=== PATIENT | male | born 1990 | race Caucasian/White ===

== ENCOUNTER 2022-08-22 18:02 | Emergency (ER) | payer BC, SELFPAY ==
[2022-08-22 18:11] VITALS: BP 131/83; PULSE 86; RESP 16; TEMP 36.4; O2SAT 100
--- NOTE | 2022-08-22 18:29 | ED.ABDPAIN ---
HPI - Abdominal Pain General Chief Complaint: Abdominal Pain Stated Complaint: STOMACH PAIN Time Seen by Provider: 08/22/22 18:17 Source: patient Mode of arrival: ambulatory Limitations: no limitations History of Present Illness HPI narrative: Patient is a 31-year-old male presenting with right upper quadrant abdominal pain since Saturday. States there is a constant dull pain but has sharp shooting pain intermittently. Denies any association with eating making pain worse or better. States he feels like he has a big gas bubble in his abdomen, and feels bloated. Denies any nausea or vomiting but states he feels like if he could throw up it would make him feel better. Reports 1 episode of diarrhea but states that is normal for him. Related Data Allergies Allergy/AdvReac Type Severity Reaction Status Date / Time montelukast Allergy Unknown rash Verified 08/22/22 18:26 MONTELUKAST SODIUM Allergy Rash Uncoded 08/22/22 18:26 Review of Systems Review of Systems: All systems reviewed & are unremarkable except as noted in HPI and below Constitutional: Constitutional: Denies body ache(s), Denies fever(s), Denies headache(s), Denies malaise and Denies weakness Eyes: Eyes: Denies loss of vision ENT: Denies otalgia, Denies headache(s), Denies nasal discharge, Denies sinus pain and Denies sore throat Cardiovascular: Cardiovascular: Denies chest pain, Denies irregular heart rhythm and Denies dyspnea Respiratory: Respiratory: Denies dyspnea Gastrointestinal: Gastrointestinal: Reports abdominal pain, Denies melena, Denies hematochezia, Reports diarrhea, Denies nausea and Denies vomiting Musculoskeletal: Musculoskeletal: Denies back pain, Denies myalgias and Denies arthralgias Integumentary/Breasts: Skin/Breast: Denies pruritus and Denies rash Neurologic: Denies headache(s), Denies loss of vision and Denies weakness Psychiatric: Psychiatric: Reports no additional psychiatric complaints PMFSH Social History Social History Smoking status: Never smoker Alcohol intake: never Comments At time of signature, agree with nursing past medical, surgical, social and family history. There is no relevant family history pertinent to the presenting complaint. Exam Const: General: cooperative, healthy appearing, comfortable, no acute distress and well nourished Nutritional Appearance: well nourished Orientation/consciousness: patient oriented x3 Limitations: no limitations HENMT: Head: normal to inspection, normocephalic and atraumatic Ears: external ears normal Face/Nose/Sinus: Normal external nose present, normal facial exam and face symmetric Face and sinus: normal facial exam and face symmetric Mouth: Yes lip normal Eyes: General: appearance normal, both eyes and all related structures Alignment and Position: alignment normal and position normal Pupils: Equal, round and reactive pupils present EOM: EOMs intact bilaterally Neck: Neck: normal visual inspection and full ROM Chest: Chest palpation & inspection: normal inspection of the chest Resp: Effort & Inspection: normal respiratory effort and able to speak in complete sentences Auscultation: clear to auscultation bilaterally Cardio: Rate: regular rate Rhythm: regular rhythm Heart sounds: S1 normal heart sound present and S2 normal heart sound present GI: Inspection: distended and No Kehr's sign positive GI Palp: Yes abdominal tenderness (RUQ, No periumbilical tenderness.), Yes Soft to palpation, No Guarding due to palpation present (GI), No Rigid due to palpation and No Rebound tenderness present Auscultation: normal bowel sounds Other: Abdomen distended Skin: General skin exam: normal color and no rashes or lesions noted Neuro: General: patient oriented x3 and moves all extremities Cranial nerves: Yes Equal, round and reactive pupils present Speech: normal speech Gait exam (Neuro): Normal gait present Extrem: General: normal to inspection, full ROM and no edema
[2022-08-22] MEDS: MAG HYDROX/AL HYDROX/SIMETH 30 ML UDC 15 ML PO (18:36)
[2022-08-22] MEDS: LIDOCAINE HCL 2% VISC SOLN 15 ML UDC PO (18:36)
== END 2022-08-22 19:10 | disposition home or self-care (01) ==
PROVIDERS: Emergency Provider Nurse Practitioner Family
DX: R10.13 Epigastric pain (principal)
CPT/HCPCS: 99213; A9270; G0463

== ENCOUNTER 2024-03-08 13:51 | Emergency (ER) | payer OTHER, SELFPAY ==
--- NOTE | ~2024-03-08 | XR_ITS ---
XR ankle LT min 3V DATE: 03/08/2024 14:08 INDICATION: Rolled left ankle 8 days ago. Lateral pain. TECHNIQUE: 4 views COMPARISON: None FINDINGS: Moderate lateral ankle soft tissue swelling. No fracture or dislocation of the ankle or disruption of the ankle mortise. No periosteal reaction or bone destruction. IMPRESSION: Lateral soft tissue swelling; no fracture or dislocation Reviewed, dictated and finalized at location A.
--- NOTE | 2024-03-08 13:56 | ED.LOWEXIN ---
HPI - Extremity Injury (Lower) General Chief Complaint: Extremity Injury, Lower Stated Complaint: L ANKLE INJURY Time Seen by Provider: 03/08/24 14:26 Source: patient and RN notes reviewed Mode of arrival: ambulatory Limitations: no limitations History of Present Illness HPI Narrative: 33-year-old male presents with concern for right ankle pain. Reports little over week ago he rolled the ankle causing pain, swelling. He reports he has been using a wrap, using ice and elevation in he continues to have pain, swelling and bruising. complaint: ankle injury Related Data Allergies Allergy/AdvReac Type Severity Reaction Status Date / Time montelukast Allergy Unknown rash Verified 03/08/24 14:02 MONTELUKAST SODIUM Allergy Rash Uncoded 03/08/24 14:02 Review of Systems Review of Systems: CONSTITUTIONAL: Denies malaise, chills, sweats, or fever. SKIN: Denies rash or itching, open skin, laceration, abrasion, redness, warmth MUSCULOSKELETAL: Reports left ankle pain, swelling, bruising NEUROLOGIC: Denies numbness, weakness All systems reviewed & are unremarkable except as noted in HPI and below PMFSH Social History Social History Smoking status: Never smoker Alcohol intake: never Comments At time of signature, agree with nursing past medical, surgical, social and family history. There is no relevant family history pertinent to the presenting complaint Exam Narrative: GENERAL: Well-appearing, well-nourished, and in no acute distress. HEAD: Normocephalic, atraumatic. EYES: PERRLA, conjunctivae clear NECK: Supple. CHEST: Speaks in full sentences. No respiratory distress. HEART: Regular rate and rhythm. Normal and equal peripheral pulses. EXTREMITIES: Left ankle, foot, digits have grossly normal strength and sensation, grossly normal range of motion. Mild lateral edema, dependent ecchymosis. Normal sensation with sensitivity to light touch and pain. Lateral ankle tenderness. No open wounds, no skin tenting, no devitalized tissue or atrophy, no trophic changes, no obvious deformity, alignment normal, nearby joints and structures intact. Distal pulses palpable and equal bilaterally, skin warm, dry, pink. Capillary refill less than 3 seconds. SKIN: Warm, dry, no rash. NEURO: Alert and oriented x3. PSYCH: Normal mood and affect Course Course Emergency Course: Patient is aware of diagnosis, understands and agrees to treatment plan. Anticipatory guidance given. Patient agrees to follow-up as directed and is aware of reasons to seek care at the emergency department. Portions of this record may have been created with voice recognition software Level of Care: Express Care Visit Vital Signs Vital signs: Reviewed. MDM - Extremity Injury (Lower) MDM Narrative Medical decision making narrative: Patients injury and pain is consistent with musculoskeletal etiology. No signs of neurological or vascular compromise on exam. Compartments and tissues are soft without signs of compartment syndrome. Pain is felt appropriate for further evaluation on an outpatient basis. Critical Care Time Critical Care Time Critical Care Time: No Discharge Plan Discharge Clinical Impression: Ankle sprain and strain Patient Disposition: Home, Self-Care Condition: Stable Instructions: Ankle Sprain (ED) Additional Instructions: Avoid activities that cause pain until the pain subsides. Ice to the area 20-30 minutes 4-6 times a day Elevate above heart Elastic wrap or orthopedic boot as directed until you follow-up with orthopedics Tylenol for lesser pain Ibuprofen regularly for the next 2-3 days for the inflammation Follow up with Orthopedics for further evaluation If the condition worsens with numbness, tingling, decrease sensation with weakness seek treatment in the emergency room immediately. Prescriptions: New (DME) Walking Boot See Rx Instructions .[facility] Qty: 1 0RF Rx Instructions: As direc
[2024-03-08 14:01] VITALS: BP 128/83; PULSE 92; RESP 16; TEMP 36.8; O2SAT 100
[2024-03-08 14:02] VITALS: BP 128/83; PULSE 92; RESP 16; TEMP 36.8; O2SAT 100
== END 2024-03-08 14:30 | disposition home or self-care (01) ==
PROVIDERS: Emergency Provider Nurse Practitioner
DX: S93.402A Sprain of unspecified ligament of left ankle, initial encounter (principal); S96.912A Strain of unspecified muscle and tendon at ankle and foot level, left foot, initial encounter; X50.9XXA Other and unspecified overexertion or strenuous movements or postures, initial encounter; Z98.52 Vasectomy status
CPT/HCPCS: 73610; 99213; G0463

== ENCOUNTER 2024-05-18 18:00 | Emergency (ER) | payer OTHER, SELFPAY ==
--- NOTE | ~2024-05-18 | XR_ITS ---
XR chest 2V Ordering provider: CHEYENNE Mcfadden History: 33 years Male with . cough x2 weeks . Comparison: None. FINDINGS: MEDIASTINUM: The cardiac silhouette is not enlarged. LUNGS: No infiltrates, effusions or pneumothorax. OTHER: No free air under the diaphragm. IMPRESSION: No acute cardiopulmonary pathology. Reviewed, dictated and finalized at location A. [facility]
[2024-05-18 18:18] VITALS: BP 111/85; PULSE 85; RESP 18; TEMP 36.6; O2SAT 100
[2024-05-18 18:20] VITALS: BP 111/85; PULSE 85; RESP 18; TEMP 36.6; O2SAT 100
--- NOTE | 2024-05-18 18:36 | ED.URI ---
HPI - URI/Sore Throat General Chief Complaint: Upper Respiratory Infection Stated Complaint: Cough Time Seen by Provider: 05/18/24 18:26 Source: patient and RN notes reviewed Mode of arrival: ambulatory Limitations: no limitations History of Present Illness HPI Narrative: Patient presents today complaining a 2 week history of cough that is worse at night with mild shortness of occasionally. Denies congestion, rhinorrhea, sore throat, fever. He has tried DayQuil and cough drops without much relief. Cough does keep him awake at night. Eating and drinking normally. Son presents also with similar symptoms. Related Data Allergies Allergy/AdvReac Type Severity Reaction Status Date / Time montelukast Allergy Unknown rash Verified 05/18/24 18:19 MONTELUKAST SODIUM Allergy Rash Uncoded 05/18/24 18:19 Review of Systems Review of Systems: CONSTITUTIONAL: Denies body aches, fever, chills, or sweats. EYES: Denies visual changes, redness, or discharge. ENT: Denies rhinorrhea, congestion, sore throat, or otalgia. CARDIOVASCULAR: Denies chest pain, palpitations, or edema. RESPIRATORY:+ cough, shortness of breath. GASTROINTESTINAL: Denies abdominal pain, nausea, vomiting, or diarrhea. GENITOURINARY: Denies dysuria or hematuria. SKIN: Denies rash, itching, or wounds. MUSCULOSKELETAL: Denies back pain, joint pain, or myalgia. NEUROLOGIC: Denies headache, numbness, tingling, or weakness. PSYCH: Denies depression or anxiety. [facility] Social History Social History Smoking status: Never smoker Alcohol intake: never Comments At time of signature, I have reviewed and agree with nursing past medical, surgical, social and family history unless otherwise noted. Please see nursing chart for further information. There is no relevant family history pertinent to the presenting complaint Exam Narrative: GENERAL: Well-appearing, well-nourished, and in no acute distress. HEAD: Normocephalic, atraumatic. EYES: EOMI. No redness or drainage. Conjunctivae normal. ENT: Mucous membranes pink and moist. Nares clear. No rhinorrhea. TMs normal bilaterally. Throat normal. Uvula midline. NECK: Normal AROM. Supple. No lymphadenopathy. CHEST: No respiratory distress. Clear to auscultation. HEART: Regular rate and rhythm. No murmur appreciated. EXTREMITIES: Normal range of motion. No edema. SKIN: Warm, dry, no rash. Capillary refill normal. Normal skin turgor. NEURO: No focal deficits. Alert and oriented x3. Gait steady. PSYCH: Normal affect. No signs of depression or anxiety. Course Course Level of Care: Express Care Visit Vital Signs Vital signs: Vital Signs Temperature 97.8 F 05/18/24 18:18 Pulse Rate 85 05/18/24 18:18 Respiratory Rate 18 05/18/24 18:18 Blood Pressure 111/85 05/18/24 18:18 Pulse Oximetry 100 05/18/24 18:18 Oxygen Delivery Room Air 05/18/24 18:18 Temperature 97.8 F 05/18/24 18:20 Pulse Rate 85 05/18/24 18:20 Respiratory Rate 18 05/18/24 18:20 Blood Pressure 111/85 05/18/24 18:20 Pulse Oximetry 100 05/18/24 18:20 Oxygen Delivery Room Air 05/18/24 18:20 Reviewed MDM - URI/Sore Throat MDM Narrative Medical decision making narrative: Chest x-ray negative for pneumonia. Patient will be treated with prednisone for his bronchitis symptoms as well as some Cheratussin for his cough. Anticipatory guidance given. Differential Diagnosis Differential diagnosis: Likely upper respiratory infection, viral infection, bronchitis and other (Pneumonia) Imaging Data Radiologist's impression: ITS Impressions Chest X-Ray 05/18/24 19:00 IMPRESSION: No acute cardiopulmonary pathology. Critical Care Time Critical Care Time Critical Care Time: No Discharge Plan Discharge Clinical Impression: Bronchitis Patient Disposition: Home, Self-Care Condition: Stable Instructions: Acute Bronchitis (ED) Additional Instructions: Your chest x-ray is negative for pneumonia. Please take the prednisone and Cheratussin as directed. Do not drive within 6 hours of taking the Cheratussin as it can make you drowsy. Go to the ER if symptoms worsen. Follow-up with your PCP with any additional concerns. Your blood pressure was elevated above 120/80 today at Urgent Care. This puts you above the threshold for follow up. Please schedule a followup visit with your personal physician as soon as possible, for further evaluation and treatment. Even blood pressure exceeding 120/80 may indicate pre-hypertension. Prescriptions: New codeine-guaifenesin 10-100 mg/5 mL liquid 5 ml PO Q6H PRN (Reason: cough) Qty: 120 0RF prednisone 50 mg tablet 50 mg PO DAILY 5 Days Qty: 5 0RF Follow-up/Referrals: PHYSICIAN,[facility] [Primary Care Provider] - Time of Disposition: 19:18
== END 2024-05-18 19:21 | disposition home or self-care (01) ==
PROVIDERS: Emergency Provider Nurse Practitioner
DX: J40 Bronchitis, not specified as acute or chronic (principal)
CPT/HCPCS: 71046; 99213; G0463

== ENCOUNTER 2024-05-30 08:46 | Emergency (ER) | payer OTHER, SELFPAY ==
[2024-05-30 09:02] VITALS: BP 115/88; PULSE 85; RESP 20; TEMP 36.2; O2SAT 99
--- NOTE | 2024-05-30 09:14 | ED_ITS ---
HPI - General Adult General Chief complaint: Upper Respiratory Infection Stated complaint: cough Time Seen by Provider: 05/30/24 09:14 Source: patient Mode of arrival: ambulatory Limitations: no limitations History of Present Illness HPI narrative: 33-year-old male patient presents to the [facility] with complaints of a cough for the past month. Patient states he was seen at [facility] about 12 days ago and they did give him a cough syrup and some steroids. Patient states that he continues to have a cough and feels like it is getting worse. Patient states that the steroids did help for a little while but when he stopped taking them the cough came back. Denies fevers, body aches or chills. Patient states he does feel like he gets a little short of breath especially when he is in a coughing fit and does have some soreness from coughing. Denies abdominal pain, nausea, vomiting or diarrhea. Denies taking any [id number] medication. Related Data Allergies Allergy/AdvReac Type Severity Reaction Status Date / Time montelukast Allergy Unknown rash Verified 05/30/24 09:05 MONTELUKAST SODIUM Allergy Rash Uncoded 05/18/24 18:19 Review of Systems Review of Systems: CONSTITUTIONAL: Denies fever, chills, or sweats. EYES: Denies visual changes, redness, or discharge. ENT: Denies rhinorrhea, congestion, sore throat, or otalgia. CARDIOVASCULAR: Denies chest pain, palpitations, or edema. RESPIRATORY: Positive cough with intermittent dyspnea. GASTROINTESTINAL: Denies abdominal pain, nausea, vomiting, or diarrhea. GENITOURINARY: Denies dysuria or hematuria. SKIN: Denies rash or itching. MUSCULOSKELETAL: Denies back pain, joint pain, or myalgia. NEUROLOGIC: Denies headache, numbness, or weakness. PSYCHIATRIC: Denies anxiety or depression. [facility] Past Medical History Medical History (Updated 05/30/24 @ 09:23 by CHEYENNE Ramirez) Allergies Asthma Social History Social History Smoking status: Never smoker Alcohol intake: never Comments At the time of my signature I agree with nursing past medical history, surgical, social, and family history. There is no relevant family history pertinent to the presenting complaint. Exam Narrative: GENERAL: Well-appearing, well-nourished, and in no acute distress. HEAD: Normocephalic, atraumatic. EYES: PERRLA and EOMI. ENT: Nares With erythema edema noted bilaterally, no rhinorrhea or epistaxis. Mucous membranes moist. bilateral TMs are clear no erythema or foreign bodies the canal. Posterior pharynx with no erythema, tonsillar enlargement, exudates or lesions present. NECK: Supple. No lymphadenopathy CHEST: Clear to auscultation. No respiratory distress. patient able talk in clear complete sentences there is a deep dry cough noted during exam. HEART: Regular rate and rhythm. No murmur heard. Normal peripheral pulses. ABDOMEN: Soft, nontender, nondistended, normal active bowel sounds. EXTREMITIES: Normal range of motion. No edema. SKIN: Warm, dry, no rash. NEURO: No focal deficits. Alert and oriented x3. Course Course Level of Care: Express Care Visit Vital Signs Vital signs: Vital signs reviewed. Medical Decision Making MDM Narrative Medical decision making narrative: Discussed with patient this is most likely a viral bronchitis. Discussed with patient that I do not hear any crackles in the lungs I would indicate pneumonia and the fact that he is not running any fevers and only has really a cough as the least symptom most likely this is a bronchitis and not pneumonia. Discussed with patient we do not treat viral illnesses with antibiotics however we can provide him an inhaler, a longer course of steroids and Tessalon Perles to help with the coughing. Discussed with patient that bronchitis can last anywhere from 6-12 weeks to fully resolve. Patient verbalized understanding denies any other questions or concerns at this time Differential Diagnosis Differential Diagnosis: Differential diagnosis: Allergic rhinitis, chronic sinusitis, tonsillitis, acute sinusitis, infectious mononucleosis, seasonal influenza, pertussis, diphtheria, meningococcal disease, viral syndrome, viral bronchitis, RSV, COVID- 19 Critical Care Time Critical Care Time Critical Care Time: No Discharge Plan Discharge Clinical Impression: Acute bronchitis, viral Patient Disposition: Home, Self-Care Condition: Stable Instructions: Antibiotic Form, Acute Bronchitis (ED) Additional Instructions: Acute bronchitis is swelling and irritation in the air passages of your lungs. This irritation may cause you to cough or have other breathing problems. Acute bronchitis often starts because of another viral illness, such as a cold or the flu. The illness spreads from your nose and throat to your windpipe and airways. Bronchitis is often called a chest cold. Acute bronchitis lasts about 2-6 weeks and is usually not a serious illness. AFTER YOU LEAVE: Medicines: Ibuprofen or acetaminophen: These medicines help lower a fever. They are available without a doctor's order. Ask your healthcare provider which medicine is right for you. Ask how much to take and how often to take it. Follow directions. These medicines can cause stomach bleeding if not taken correctly. Ibuprofen can cause kidney damage. Do not take ibuprofen if you have kidney disease, an ulcer, or allergies to aspirin. Acetaminophen can cause liver damage. Do not drink alcohol if you take acetaminophen. Cough medicine: This medicine helps loosen mucus in your lungs and make it easier to cough up. This can help you breathe easier. Inhalers: You may need one or more inhalers to help you breathe easier and cough less. An inhaler gives your medicine in a mist form so that you can breathe it into your lungs. Ask your healthcare provider to show you how to use your inhaler correctly. Steroid medicine: Steroid medicine helps open your air passages so you can breathe easier. Take your medicine as directed. Call your healthcare provider if you think your medicine is not helping or if you have side effects. How to use an inhaler: Shake the inhaler well to make sure you get the correct amount of medicine per puff. Remove the cover from your inhaler's mouthpiece. If you are using a spacer, connect your inhaler to the flat end of the spacer. Exhale as much air from your lungs as you can. Put the mouthpiece in your mouth past your front teeth and rest it on the top of your tongue. Do not block the mouthpiece opening with your tongue. Breathe in through your mouth at a slow and steady rate. As you do this, press the inhaler to release the puff of medicine. Finish breathing in slowly and deeply as you inhale the medicine. When your lungs are full, hold your breath for 10 seconds. Then breathe out slowly through puckered lips or through your nose. If you need to take more puffs, wait at least 1 minute between each puff. Rinse your mouth with water after you use the inhaler. This may keep you from getting a mouth infection or irritation. Follow the instructions that come with your inhaler to clean it. You should clean your inhaler at least once a week. Ways to care for yourself: Avoid alcohol: Alcohol dulls your urge to cough and sneeze. When you have bronchitis, you need to be able to cough and sneeze to clear your air passages. Alcohol also causes your body to lose fluid. This can make the mucus in your lungs thicker and harder to cough up. Avoid irritants in the air: Do not smoke or allow others to smoke around you. Avoid chemicals, fumes, and dust. Wear a face mask if you must work around dust or fumes. Stay inside on days when air pollution levels are high. If you have allergies, stay inside when pollen counts are high. Avoid aerosol products. This includes spray-on deodorant, bug spray, and hair spray. Drink more liquids: Most people should drink at least 8 eight-ounce cups of water a day. You may need to drink more liquids when you have acute bronchitis. Liquids help keep your air passages moist and help you cough up mucus. Get more rest: You may feel like resting more. Slowly start to do more each day. Rest when you feel it is needed. Eat healthy foods: Eat a variety healthy foods every day. Your diet should include fruits, vegetables, breads, and protein (such as chicken, fish, and beans). Dairy products (such as milk, cheese, and ice cream) can sometimes increase the amount of mucus your body makes. Ask if you should decrease your intake of dairy products. Use a humidifier: Use a cool mist humidifier to increase air moisture in your home. This may make it easier for you to breathe and help decrease your cough. Decrease your risk of acute bronchitis: Get the vaccinations you need: Ask your healthcare provider if you should get vaccinated against the flu or pneumonia. Avoid things that may irritate your lungs: Stay inside or cover your mouth and nose with a scarf when you are outside during cold weather. You should also stay inside on days when air pollution levels are high. If you have allergies, stay inside when pollen counts are high. Avoid using aerosol products in your home. This includes spray-on deodorant, bug spray, and hair spray. Avoid the spread of germs: Wash your hands often with soap and water. Carry germ-killing gel with you. You can use the gel to clean your hands when there is no soap and water available. Do not touch your eyes, nose, or mouth unless you have washed your hands first. Always cover your mouth when you cough. Cough into a tissue or your shirtsleeve so you do not spread germs from your hands. Try to avoid people who have a cold or the flu. If you are sick, stay away from others as much as possible. Follow up with your healthcare provider as directed: Write down questions you have so you will remember to ask them during your follow-up visits. Contact your healthcare provider if: You have a fever. Your skin becomes itchy or you have a rash after you take your medicine. Your breathing problems do not go away or get worse. Your cough does not get better with treatment. You cough up blood. You have questions or concerns about your condition or care. Seek care immediately or call 911 if: You faint. Your lips or fingernails turn blue. You feel like you are not getting enough air when you breathe. You have swelling of your lips, tongue, or throat that makes it hard to breathe or swallow. Patient Language: Salvadorean Prescriptions: New benzonatate 200 mg capsule 200 mg PO TID PRN (Reason: cough) 10 Days Qty: 30 0RF prednisone 10 mg tablets,dose pack See Rx Instructions .ROUTE .COMPLEX Qty: 48 0RF Rx Instructions: 50 mg x 3 days, 40 mg x 3 days, 30 mg x 3 days, 20 mg x 3 days, 10 mg x 3 days albuterol sulfate [Ventolin HFA] 90 mcg/actuation HFA aerosol inhaler 2 puff INHALATION .Q4 hours PRN (Reason: cough) Qty: 18 0RF No Action codeine-guaifenesin 10-100 mg/5 mL liquid 5 ml PO Q6H PRN (Reason: cough) Qty: 120 0RF prednisone 50 mg tablet 50 mg PO DAILY 5 Days Qty: 5 0RF Follow-up/Referrals: PHYSICIAN,ROCK CLIMBING INSTRUCTOR [Primary Care Provider] - Pinky Vides DO [Physician] - Time of Disposition: 09:21
--- OUTSIDE RECORDS SUMMARY | 2024-06-03 00:06 | XMS_ITS | Encounter Summary ---
Author Organization [facility] Address [address] [place] [address]. [place], [place] [id number] [place] [id number] Care Team Providers Care Marketing Strategy Manager Name Role Phone Unavailable Primary Care Provider Unavailabl e Encounter Details Date Type Department Care Team (Late st Contact Info) Description 11/09/2014 Abstract [facility] Emergency Room [address] [place], [place] [id number] Diann Brewer, CRUSHER SCREEN REPAIRER [address] [facility] [address] [id number] Social History Tobacco Use Types Packs/Day Years Used Date Smoking Tobacco: Never Assessed Sex and Gender Information Value Date Recorded Sex Assigned at Not on file Legal Sex Male 4:05 PM CDT Gender Identity Not on file Sexual Orientation Not on file documented as of this encounter Plan of Treatment Not on file documented as of this encounter Visit Diagnoses Diagnosis Open wound of finger Open wound of finger(s) , without mention of complication documented in this encounter
--- OUTSIDE RECORDS SUMMARY | 2024-06-03 00:06 | XMS_ITS | Encounter Summary ---
Author Organization [facility] Address [address] [place] [address]. [place], [place] [id number] [place] [id number] Care Team Providers Care Coffee Grinder Name Role Phone Unavailable Primary Care Provider Unavailabl e Encounter Details Date Type Department Care Team (Latest Contact Info) Description 07/02/2012 Abstract [facility] Social History Tobacco Use Types Packs/Day Years Used Date Smoking Tobacco: Never Assessed Sex and Gender Information Value Date Recorded Sex Assigned at Not on file Legal Sex Male 4:05 PM CDT Gender Identity Not on file Sexual Orientation Not on file documented as of this encounter Plan of Treatment Not on file documented as of this encounter Visit Diagnoses Not on filedocumented in this encounter
--- OUTSIDE RECORDS SUMMARY | 2024-06-03 00:06 | XMS_ITS | Encounter Summary ---
Author Organization [facility] Address [address] [place] [address]. [place], [place] [id number] [place] [address] Care Team Providers Care Contract Paralegal Name Role Phone None, Provider Primary Care Provider Rosina gaitan Encounter Details Date Type Department Care Team (Latest Contact Info) Description 02/12/2021 Travel Social History Tobacco Use Types Packs/Day Years Used Date Smoking Tobacco: Never Smokeless Tobacco: Current Chew Alcohol Use Standard Drinks/Week Comments Yes 0 (1 standard drink = 0.6 oz pur e alcohol) socially Sex and Gender Information Value Date Recorded Sex Assigned at Not on file Legal Sex Male 4:05 PM CDT Gender Identity Not on file Sexual Orientation Not on file COVID-19 Exposure Response Date Recorded In the last month, have you been in contact with someone who was confirmed or suspected to have Coronavirus / COVID-19? No / Unsure 02/12/2021 7:30 PM CDT documented as of this encounter Plan of Treatment Not on file documented as of this encounter Visit Diagnoses Not on filedocumented in this encounter Care Teams Contract Paralegal Relationship Specialty Start Date End Date None, Provider, PCP - General 01/14/20 documented as of this encounter
--- OUTSIDE RECORDS SUMMARY | 2024-06-03 00:06 | XMS_ITS | Encounter Summary ---
Author Organization [facility] Address [address] [place] [address]. [place], [place] [id number] [place] [id number] Care Team Providers Care Salt Miner Name Role Phone None, Provider Primary Care Provider Rosina gaitan Encounter Details Date Type Department Care Team (Latest Contact Info) Description 01/14/2020 Travel Social History Tobacco Use Types Packs/Day [...] have Coronavirus / COVID-19? No / Unsure 01/14/2020 4:54 PM CDT documented as of this encounter Plan of Treatment Not on file documented as of this encounter Visit Diagnoses Not on filedocumented in this encounter Care Teams Salt Miner Relationship Specialty Start Date End Date None, ProviderMD PCP - General 01/14/20 documented as of this encounter
--- OUTSIDE RECORDS SUMMARY | 2024-06-03 00:06 | XMS_ITS | Encounter Summary ---
Author Organization [facility] Address [address] [place] [address]. [place], [place] [id number] [place] [address] Care Team Providers Care Db2 Dba Name Role Phone None, Provider MD Primary Care Provider Unavaila ble Reason for Referral * (Routine) - Closed Specialty Diagnoses / Procedures Referred By Seferino kelly Referred To Contact Procedures LACERATION REPAIR Teodora Romero MD Phone: tel: fax: Referral ID Status Reason Start Date Expiration Date Visits Re quested Visits Authorized [id number] Closed 02/12/2021 03/15/2022 1 1 Reason for Visit * Reason Comments Laceration Encounter Details Date Type Department Care Team (Late st Contact Info) Description 02/12/2021 8:13 PM CDT - 02/12/2021 10:09 PM CDT Emergency [facility] Emergency Room [address] [place] [address] Teodora Romero MD [address] [facility] [address] [place] [address] Laceration Discharge Disposition: Home or Self Care (Routine Discharge) Social History Tobacco Use Types Packs/Day Years [...] PM CDT documented as of this encounter Last Filed Vital Signs Vital Sign Reading Time Taken Comments Blood Pressure 141/84 02/12/2021 9:30 PM CDT Pulse 93 02/12/2021 8:15 PM CDT Temperature 36.7 ??C (98.1 ??F) 02/12/2021 8:15 PM CD T Respiratory Rate 20 02/12/2021 9:30 PM CDT Oxygen Saturation 99% 02/12/2021 9:30 PM CDT Inhaled Oxygen Concentration - - Weight 95.3 kg (210 lb) 02/12/2021 8:15 PM CDT Height 182.9 cm (6') 02/12/2021 8:15 PM CDT Body Mass Index 28.48 02/12/2021 8:15 PM CDT documented in this encounter Discharge Instructions * Attachments The following attachments cannot be sent through Care Everywhere. * Laceration Repair With Stitches ED (Stateless) documented in this encounter Medications at Time of Discharge bacitracin-polym yxin b ointment Apply topically 2 (two) times daily for 10 days. 15 g 02/12/2021 1 cephALEXin (KEFLEX) 500 MG capsule Take 1 capsule (500 mg total) by mouth 3 (three) times daily for 5 days. 15 capsule 02/12/2021 1 documented as of this encounter ED Notes * Teodora Romero MD - 02/12/2021 8:26 PM CDTAssociated Order(s): Lac Repair ED NOTE Chief Complaint Chief Complaint Patient presents with ??? Laceration History of Present Illness Pt presents with right hand laceration. He got his hand stuck between a wheel and a fender while working on his truck - thinks hand got caught on a piece of metal on the fender. No known broken pieces of metal. Does not think there could be FB in the wound. He is right-handed. He isn't sure of his last tetanus shot. He states it did bleed significantly initially, like an artery was cut. Now bleeding controlled (heduct taped it and held pressure) No other injuries. Medical History ALLERGIES: Allergies Allergen Reactions ??? Montelukast Unknown MEDICATIONS: Prior to Admission medications Medication Sig Start Date End Date Taking? Authorizing Provider bacitracin-polymyxin b ointment Apply topically 2 (two) times daily for 10 days. 02/12/21 02/22/21 YesTeodora Romero MD cephALEXin (KEFLEX) 500 MG capsule Take 1 capsule (500 mg total) by mouth 3 (three) times daily for5 days. 02/12/21 02/17/21 Yes Teodora Romero MD PAST MEDICAL HISTORY: Past Medical History: Diagnosis Date ??? Asthma PAST SURGICAL HISTORY: Past Surgical History: Procedure Laterality Date ??? VASECTOMY FAMILY HISTORY: No family history on file. SOCIAL HISTORY: Social History Tobacco Use ??? Smoking status: Never Smoker ??? Smokeless tobacco: Current User Types: Chew Substance Use Topics ??? Alcohol use: Yes Comment: socially ??? Drug use: Never Review of Systems Review of Systems Constitutional: Negative for chills and fever. HENT: Negative. Eyes: Negative. Respiratory: Negative for shortness of breath. Cardiovascular: Negative. Negative for chest pain. Gastrointestinal: Negative. Negative for vomiting. Musculoskeletal: Negative. Skin: Right hand laceration Neurological: Negative. Negative for dizziness and headaches. Psychiatric/Behavioral: Negative for depression. All other systems reviewed and are negative. Physical Exam Filed Vitals: 02/12/21201402/12/21 2030 02/12/21 2100 02/12/21 2130 BP: 130/86 (!) 125/91 125/88 (!) 141/84 Pulse: 93 Resp: 12 20 20 20 Temp: 98.1 ??F (36.7 ??C) TempSrc: Tympanic SpO2: 97% 98% 97% 99% Weight: 95.3 kg (210 lb) Height: 6' (1.829 m) Pulse ox is 97% on RA and is normal. Physical Exam Constitutional: He is oriented to person, place, and time. He appears well- developed and well-nourished. No distress. HENT: Head: Normocephalic and atraumatic. Eyes: Pupils are equal, round, and reactive to light. EOM are normal. Neck: No tracheal deviation present. Cardiovascular: Normal rate and regular rhythm. Pulmonary/Chest: Effort normal and breath sounds normal. No respiratory distress. Abdominal: Soft. Bowel sounds are normal. He exhibits no distension. Musculoskeletal: General: No edema. Normal range of motion. Cervical back: Normal range of motion and neck supple. Neurological: He is alert and oriented to person, place, and time. Skin: Skin is warm and dry. 2cm laceration to the dorsum of the right hand, more radial. Initially no vascular bleeding but on cleansing wound and local anesthesia, small bleeding vessel found. No FB seen. Tendon function intact. Distal cap refill intact. Psychiatric: He has a normal mood and affect. Nursing note and vitals reviewed. Diagnostic Studies / Procedures ELECTROCARDIOGRAMS: No results found for this visit on 02/12/21. LABORATORY STUDIES: No results found for this visit on 02/12/21. IMAGING STUDIES XR HAND RT 3V (Results Pending) Lac Repair Date/Time: 02/12/2021 10:21 PM Performed by: Teodora Romero MD Authorized by: Teodora Romero MD Consent: Consent obtained: Verbal Consent given by: Patient Risks discussed: Infection, pain and poor cosmetic result Alternatives discussed: No treatment and delayed treatment Anesthesia (see MAR for exact dosages): Anesthesia method: Local infiltration Local anesthetic: Lidocaine 1% WITH epi Laceration details: Location: Hand Hand location: R hand, dorsum Length (cm): 2 Depth (mm): 6 Repair type: Repair type: Complex Pre-procedure details: Preparation: Patient was prepped and draped in usual sterile fashion and imaging obtained to evaluate for foreign bodies Exploration: Limited defect created (wound extended): yes Hemostasis achieved with: Direct pressure, tied off vessels and epinephrine Wound exploration: wound explored through full range of motion and entire depth of wound probed andvisualized Wound extent: no muscle damage noted and no tendon damage noted Contaminated: yes Treatment: Area cleansed with: Saline Amount of cleaning: Extensive Irrigation solution: Sterile saline Irrigation volume: 1000 Irrigation method: Pressure wash Visualized foreign bodies/material removed: yes Debridement: None Subcutaneous repair: Suture size: 5-0 Suture material: Chromic gut Suture technique: Simple interrupted Number of sutures: 1 (to tie off bleeding vessel) Skin repair: Repair method: Sutures Suture size: 5-0 Suture material: Nylon Number of sutures: 5 Approximation: Approximation: Close Post-procedure details: Dressing: Antibiotic ointment and bulky dressing Patient tolerance of procedure: Tolerated well, no immediate complications ED Course / Medical Decision Making MDM Number of Diagnoses or Management Options Laceration of right hand without foreign body, initial encounter: new, needed workup Diagnosis management comments: XR done and reveals no fracture, no fb. Amount and/or Complexity of Data Reviewed Tests in the radiology section of CPT??: ordered and reviewed Tests in the medicine section of CPT??: ordered and reviewed Independent visualization of images, tracings, or specimens: yes Risk of Complications, Morbidity, and/or Mortality Presenting problems: moderate Diagnostic procedures: moderate Management options: moderate Patient Progress Patient progress: improved Medications lidocaine-EPINEPHrine 1 %-1:093106 injection 5 mL (5 mLs Intradermal Given by Other 02/12/212203) Tdap (ADACEL) injection 0.5 mL (0.5 mLs Intramuscular Given 02/12/212135) bacitracin ointment ( Topical Given 02/12/212202) Clinical Impression Laceration of right hand without foreign body, initial encounter (Primary) Disposition: Discharge Discharge Medication List as of 02/12/2021 9:35 PM START taking these medications Details bacitracin-polymyxin b ointment Apply topically 2 (two) times daily for 10 days., Starting 02/12/2021, Until Sat02/22/2021, Eprescribe Class: Eprescribe Pharmacy: [facility] [address] [place] [address] [address] (Ph #: [phone]) cephALEXin (KEFLEX) 500 MG capsule Take 1 capsule (500 mg total) by mouth 3 (three) times daily for5 days., Starting 02/12/2021, Until Sat02/17/2021, Eprescribe Class: Eprescribe Pharmacy: [facility] [address] [place] [address] [address] (Ph #: [phone]) Follow-up: KRYSTAL Hebert [address] [facility] [address] In 1 week For suture removal or your regular doctor [facility] Emergency Room [address] [facility] [phone] If symptoms worsen TEOODRA ROMERO MD 02/12/2021 22:24 Teodora Romero MD 02/12/21 2224 * Anny Feng RN - 02/12/2021 8:13 PM CDT Patient here with complaints of laceration to right hand. Obtained about 1 hour ago. Patient stateshe got it stuck between a semi fender and tire. documented in this encounter Plan of Treatment Not on file documented as of this encounter Procedures Procedure Name Priority Date/Time Associated Diagnosis Comments XR HAND RT 3V STAT 02/12/2021 8:58 PM CDT LACERATION REPAIR Routine 02/12/2021 8:2 6 PM CDT documented in this encounter Results * XR HAND RT 3V (02/12/2021 8:58 PM CDT) Anatomical Region Laterality Modality Hand Radiographic Etelvina ging 02/13/2021 7:44 AM CDT Impressions 02/13/2021 7:44 AM CDT IMPRESSION: No evidence of acute fracture, dislocation, or radiopaque foreign body. Concur with preliminary report rendered by Melisa Townsend M.D. Referred By: TEODORA ROMERO Interpreted By: Kuldip Maciel, 02/13/2021 7:44 AM Narrative 02/13/2021 7:44 AM CDT IMAGING STUDIES: XR HAND RT 3V DATE: 02/12/2021 8:58 PM INDICATION: injury, deep lac ?? COMPARISON: No comparisons. TECHNIQUE: 3 views Procedure Note Kuldip Maciel MD - 02/13/2021 IMAGING STUDIES: XR HAND RT 3V DATE: 02/12/2021 8:58 PM INDICATION: injury, deep lac COMPARISON: No comparisons. TECHNIQUE: 3 views IMPRESSION: No evidence of acute fracture, dislocation, or radiopaque foreign body. Concur with preliminary report rendered by Melisa Townsend M.D. Referred By: TEODORA ROMERO Interpreted By: Kuldip Maciel, 02/13/2021 7:44 AM us Teodora Romero MD GENERAL IMAGING Final Resul t * Lac Repair (02/12/2021 8:26 PM CDT) Narrative Teodora Romero MD - 02/12/2021 8:26 PM CDT Teodora Romero MD ? 02/12/2021 10:24 PM Lac Repair Date/Time: 02/12/2021 10:21 PM Performed by: Teodora Romero MD Authorized by: Teodora Romero MD Consent: ??Consent obtained: ??Verbal ??Consent given by: ??Patient ??Risks discussed: ??Infection, pain and poor cosmetic result ??Alternatives discussed: ??No treatment and delayed treatment Anesthesia (see MAR for exact dosages): ??Anesthesia method: ??Local infiltration ??Local anesthetic: ??Lidocaine 1% WITH epi Laceration details: ??Location: ??Hand ??Hand location: ??R hand, dorsum ??Length (cm): ??2 ??Depth (mm): ??6 Repair type: ??Repair type: ??Complex Pre-procedure details: ??Preparation: ??Patient was prepped and draped in usual sterile fashion and imaging obtained to evaluate for foreign bodies Exploration: ??Limited defect created (wound extended): yes ?Hemostasis achieved with: ??Direct pressure, tied off vessels and epinephrine ??Wound exploration: wound explored through full range of motion and entire depth of wound probed and visualized ?Wound extent: no muscle damage noted and no tendon damage noted ?Contaminated: yes ?? Treatment: ??Area cleansed with: ??Saline ??Amount of cleaning: ??Extensive ??Irrigation solution: ??Sterile saline ??Irrigation volume: ??1000 ??Irrigation method: ??Pressure wash ??Visualized foreign bodies/material removed: yes ?Debridement: ??None Subcutaneous repair: ??Suture size: ??5-0 ??Suture material: ??Chromic gut ??Suture technique: ??Simple interrupted ??Number of sutures: ??1 (to tie off ??bleeding vessel) Skin repair: ??Repair method: ??Sutures ??Suture size: ??5-0 ??Suture material: ??Nylon ??Number of sutures: ??5 Approximation: ??Approximation: ??Close Post-procedure details: ??Dressing: ??Antibiotic ointment and bulky dressing ??Patient tolerance of procedure: ??Tolerated well, no immediate complications us Teodora Romero MD PROCEDURE/MINOR SURGICAL OR DERABLES Final Result documented in this encounter Visit Diagnoses Diagnosis Laceration of right hand without foreign body, initial encounter- Primary documented in this encounter Administered Medications Inactive Administered Medications - up to 3 most recent administrations Medication Order MAR Action Action Date Dose Rate Site bacitracin ointment Topical, Once, 1 dose, On 02/12/21 at 2130 Given 02/12/2021 10:03 PM CDT lidocaine-EPINEPHrine 1 %-1:811973 injection 5 mL 5 mL, Intradermal, Once, 1 dose, On 02/12/21 at 2030 Given by Other 02/12/2021 10:04 PM CDT 5 mLs Right Hand documented in this encounter Active and Recently Administered Medications Times are shown in CDT. Scheduled Medication Order 02/10/2021 02/11/2021 02/12/2021 bacitracin ointment (COMPLETED) Topical, Once, 1 dose, On 02/12/21 at 2130 2203 (Given - Provid er: Farshad Merchant RN) lidocaine-EPINEPHrine 1 %-1:390451 injection 5 mL (COMPLETED) 5 mL, Intradermal, Once, 1 dose, On 02/12/21 at 2030 2204 (Given by Other - Provider: Farshad Merchant RN) documented in this encounter Care Teams Db2 Dba Relationship Specialty Start Date End Date None, Provider, PCP - General 01/14/20 documented as of this encounter
--- OUTSIDE RECORDS SUMMARY | 2024-06-03 00:06 | XMS_ITS | Encounter Summary ---
Author Organization [facility] Address [address] [place] [address]. [place], [place] [address] [place] [address] Care Team Providers Care Shot Core Drill Operator Helper Name Role Phone Unavailable Primary Care Provider Unavailabl e Encounter Details Date Type Department Care Team (Latest Contact Info) Description 06/30/2012 Abstract [facility] Danei Espinoza MD Social History Tobacco Use Types Packs/Day Years Used Date Smoking Tobacco: Never Assessed Sex and Gender Information Value Date Recorded Sex Assigned at Not on file Legal Sex Male 4:05 PM CDT Gender Identity Not on file Sexual Orientation Not on file documented as of this encounter Last Filed Vital Signs Vital Sign Reading Time Taken Comments Blood Pressure 118/68 06/30/2012 8:18 AM RECORDS COORDINATOR Pulse 89 06/30/2012 8:18 AM RECORDS COORDINATOR Temperature - - Respiratory Rate - - Oxygen Saturation - - Inhaled Oxygen Concentration - - Weight 82.1 kg (181 lb) 06/30/2012 8:18 AM RECORDS COORDINATOR Height - - Body Mass Index - - documented in this encounter Progress Notes * Danie Espinoza MD - 06/30/2012 8:10 AM CST Chief Complaint 1. Laceration Chief Complaint Free Text: cut right index finger w/razor....tdap approx. 6months ago Reason For Visit Acute Visit Social History ?? Never A Smoker Current Meds 1. ZyrTEC Allergy TABS; Therapy: (Recorded:30Jun2012) to Recorded; Dispense: 0 Days ; #: Sufficient TABS; Refill: 0; Record; Last Updated By: Morro Rojas Allergies 1. Singulair TABS (montelukast sodium) Vitals Vital Signs [Data Includes: Current Encounter] 30Jun2012 08:18AM Temperature 97.5 F Heart Rate 89 Respiration 14 Systolic 118 Diastolic 68 O2 Saturation 99 Weight 181 lb RDS COORDINATOR documented in this encounter Plan of Treatment Not on file documented as of this encounter Visit Diagnoses Not on filedocumented in this encounter
--- OUTSIDE RECORDS SUMMARY | 2024-06-03 00:06 | XMS_ITS | Encounter Summary ---
Author Organization [facility] Address [address] [place] [address]. [place], [place] [address] [place] [address] Care Team Providers Care Preboarder Name Role Phone None, Provider MD Primary Care Provider Unavaila ble Reason for Visit * Reason Comments Toe Swelling infected right great toe Encounter Details Date Type Department Care Team (Late st Contact Info) Description 01/14/2020 4:51 PM CDT - 01/14/2020 5:13 PM CDT Emergency [facility] Emergency Room [id number] [place] [address] Francisco Uribe MD [address] [place] [address] Toe Swelling (infected right great toe) Discharge Disposition: Home or Self Care (Routine [...] Sign Reading Time Taken Comments Blood Pressure 130/79 01/14/2020 4:53 PM CDT Pulse 82 01/14/2020 4:53 PM CDT Temperature 36.7 ??C (98.1 ??F) 01/14/2020 4:53 PM CD T Respiratory Rate 17 01/14/2020 4:53 PM CDT Oxygen Saturation 98% 01/14/2020 4:53 PM CDT Inhaled Oxygen Concentration - - Weight 97.5 kg (215 lb) 01/14/2020 4:53 PM CDT Height 182.9 cm (6') 01/14/2020 4:53 PM CDT Body Mass Index 29.16 01/14/2020 4:53 PM CDT documented in this encounter Discharge Instructions * Discharge Instructions* Francisco Uribe MD - 01/14/2020 5:07 PM CDT Please take antibiotics as prescribed for infection. If your symptoms do not improve or get worse please see dimension stone quarry supervisor whose information has been provided for further assessment. documented in this encounter Medications at Time of Discharge cephALEXin (KEFLEX) 500 MG capsule Take 1 capsule (500 mg total) by mouth 3 (three) times daily for 7 days. 21 capsule 01/14/2020 01/21/2020 documented as of this encounter ED Notes * Francisco Uribe MD - 01/14/2020 5:07 PM CDT [facility] Note Chief Complaint Chief Complaint Patient presents with ??? Toe Swelling infected right great toe History of Present Illness Ralph Bonilla is a 29-year-old male with history of asthma who presents for evaluation of suspected toe infection. Over the past couple of weeks he has been having redness and pain in his rightgreat toe after he tried to cut out an ingrown toenail. He has been having some purulent drainage from the toe and is becoming more red he is worried about possible infection. He is denying any feveror chills. Spine surgery is a prior vasectomy. He is otherwise denying any tobacco or drug use. Medical History ALLERGIES: No Known Allergies MEDICATIONS: Prior to Admission medications Medication Sig Start Date End Date Taking? Authorizing Provider cephALEXin (KEFLEX) 500 MG capsule Take 1 capsule (500 mg total) by mouth 3 (three) times daily for7 days. 01/14/20 01/21/20 Yes Francisco Uribe MD PAST MEDICAL HISTORY: Past Medical History: [...] Constitutional: Negative for chills and fever. HENT: Negative for nosebleeds. Eyes: Negative for visual disturbance. Respiratory: Negative for shortness of breath. Cardiovascular: Negative for chest pain. Gastrointestinal: Negative for abdominal pain, nausea and vomiting. Genitourinary: Negative. Musculoskeletal: Negative for arthralgias and myalgias. Skin: Positive for color change and wound. Neurological: Negative. Psychiatric/Behavioral: Negative. All other systems reviewed and are negative. Physical Exam Filed Vitals: 01/14/20 1653 BP: 130/79 Pulse: 82 Resp: 17 Temp: 98.1 ??F (36.7 ??C) SpO2: 98% Weight: 97.5 kg (215 lb) Height: 6' (1.829 m) Physical Exam Constitutional: He is oriented to person, place, and time. He appears well- developed and well-nourished. No distress. HENT: Head: Normocephalic and atraumatic. Nose: Nose normal. Mouth/Throat: Oropharynx is clear and moist. Eyes: Pupils are equal, round, and reactive to light. Conjunctivae are normal. Neck: Normal range of motion. Neck supple. Cardiovascular: Normal rate, regular rhythm and normal heart sounds. Pulmonary/Chest: Effort normal and breath sounds normal. No respiratory distress. Abdominal: Soft. He exhibits no distension. Musculoskeletal: He exhibits no edema, tenderness or deformity. Neurological: He is alert and oriented to person, place, and time. Strength and sensation grossly intact. Skin: He is not diaphoretic. Right great toe is red and there is some inflammation at edge of nail with some mild scant discharge. There is no obvious fluid collection to drain. Psychiatric: He has a normal mood and affect. His behavior is normal. Nursing note and vitals reviewed. Diagnostic Studies / Procedures ELECTROCARDIOGRAMS: No results found for this visit on 01/14/20. LABORATORY STUDIES: No results found for this visit on 01/14/20. IMAGING STUDIES No orders to display ED Course / Medical Decision Making MDM Number of Diagnoses or Management Options Toe infection: minor Diagnosis management comments: Patient presented emergency department for redness and drainage fromright great toe. No fever. Has some redness concerning for early cellulitis, so will prescribe keflex. Will give referral for Dr. Galicia for podiatry follow up as needed. Risk of Complications, Morbidity, and/or Mortality Presenting problems: low Management options: low Patient Progress Patient progress: stable Clinical Impression Toe infection (Primary) Disposition: Discharge Francisco Uribe MD 01/14/20 1713 documented in this encounter Plan of Treatment Not on file documented as of this encounter Visit Diagnoses Diagnosis Toe infection- Primary Unspecified local infection of skin and subcutaneous tissue documented in this encounter Care Teams Preboarder Relationship Specialty Start Date End Date None, Provider, PCP - General 01/14/20 documented as of this encounter
--- OUTSIDE RECORDS SUMMARY | 2024-06-03 00:06 | XMS_ITS | Clinical Summary ---
Author Organization [facility] Address [address] [place] [address]. [place], [place] [address] [place] [address] Care Team Providers Care Account Manager Forest [employer] Name Role Phone None, Provider MD Primary Care Provider Unavaila ble Allergies Active Allergy Reactions Criticality Noted Date Comments Montelukast Unknown 06/30/2012 Medications No known medications Immunizations Name Administration Dates Next Due Tdap (Adacel) 02/12/2021 Social History Tobacco Use Types Packs/Day Years Used Date Smoking Tobacco: Never Smokeless Tobacco: Current Chew Alcohol Use Standard Drinks/Week Comments Yes 0 (1 standard drink = 0.6 oz pur e alcohol) socially Sex and Gender Information Value Date Recorded Sex Assigned at Not on file Legal Sex Male 4:05 PM CDT Gender Identity Not on file Sexual Orientation Not on file Last Filed Vital Signs Vital Sign Reading [...] Mass Index 28.48 02/12/2021 8:15 PM CDT Plan of Treatment Health Maintenance Due Date Last Done Comments Annual Physical 1993 Hepatitis C 2008 Hepatitis B Vaccines (1 of 3 - 19+ 3-dose series) 2009 COVID-19 Vaccine ( - 2023-2 5 season) 2024 Influenza Adult (#1) 2024 DTaP, Tdap and Td Vaccines ( 2 - Td or Tdap) 02/12/2031 02/12/2021 HPV Vaccines Aged Out No longer eligi ble based on patient's age to complete this topic Meningococcal Vaccine Aged Out No danika judi eligible based on patient's age to complete this topic Pneumococcal Vaccine: Pediat rics (0 to 5 Years) and At-Risk Patients (6 to 64 Years) Aged Out No longer eligi ble based on patient's age to complete this topic RSV Immunizations Under 20 Months Aged Out No longer eligible based on patient's age to complete this topic Insurance [facility] Care Teams Account Manager [employer] Relationship Specialty Start Date End Date None, Provider, PCP - General 01/14/20
== END 2024-05-30 09:24 | disposition home or self-care (01) ==
PROVIDERS: Emergency Provider Nurse Practitioner Family
DX: J20.8 Acute bronchitis due to other specified organisms (principal); J45.909 Unspecified asthma, uncomplicated
CPT/HCPCS: 99213; G0463